=== PATIENT | female | born 1950 | race Caucasian/White ===

== ENCOUNTER 2018-04-18 20:33 | Emergency (ER) | payer OTHER ==
--- OUTSIDE RECORDS SUMMARY | 2018-04-18 20:34 | XMS REPORT | Clinical Summary ---
:1950 Author Organization [facility] Address [address] [place] [address] Care Team Providers Name Role Phone Jarrod Ortega MD Primary Care Provider Allergies Active Allergy Reactions Severity Noted Date Comments Codeine GI Intolerance 11/06/2016 Other Hives 03/27/2017 Metal Thiopental Sodium Anaphylaxis High 11/06/2016 Medications Medication Sig Dispensed Refills Start Date End Date Status amLODIPine (NORVASC) 2.5 Take 2.5 mg by 0 Active mg tablet mouth daily. LACTOBACILLUS RHAMNOSUS Take by mouth. 0 Active GG (CULTURELLE ORAL) rosuvastatin (CRESTOR) 5 Take 5 mg by 0 Active MG tablet mouth daily. L-LYSINE ORAL Take by mouth. 0 Active CALCIUM CARBONATE Take by mouth. 0 Active (CALCIUM 500 ORAL) cholecalciferol, vitamin Take 2,000 Units 0 Active D3, (VITAMIN D3) 2,000 by mouth daily. unit capsule capsule metFORMIN (GLUCOPHAGE) Take 500 mg by 0 Active 500 mg tablet mouth 2 (two) times a day with meals. FLUTICASONE PROPIONATE into each 0 Active (FLONASE NASL) nostril. esomeprazole (NexIUM) 20 Take 20 mg by 0 Active MG capsule mouth daily before breakfast. omega-3 acid ethyl Take 1 g by 0 Active esters (LOVAZA) 1 gram mouth 2 (two) capsule times a day. KRILL OIL ORAL Take by mouth. 0 Active Active Problems Problem Noted Date Trigger middle finger of left hand 11/06/2016 Trigger ring finger of left hand 11/06/2016 Tendinitis of finger 11/06/2016 Radial styloid tenosynovitis of left hand 11/06/2016 Bilateral carpal tunnel syndrome 11/06/2016 Social History Tobacco Use Types Packs/Day Years Used Date Never Smoker Smokeless Tobacco: Never Used Alcohol Use Drinks/Week oz/Week Comments Yes 1 Glasses of wine 0.6 Sex Assigned at Date Recorded Not on file Job Start Date Occupation Industry Not on file Not on file Not on file Travel History Travel Start Travel End No recent travel history available. Last Filed Vital Signs Not on file Plan of Treatment Health Maintenance Due Date Last Done Comments CERVICAL CANCER SCREENING 1973 BREAST CANCER SCREENING 2002 COLON CANCER SCREENING 2002 SHINGLES VACCINES (1 of 2) 2002 PNEUMOCOCCAL POLYSACCHARIDE VACCINE AGE 65 AND OVER 2017 PNEUMOCOCCAL-13 2017 INFLUENZA VACCINE 10/29/2017 Results Not on fileafter 04/17/2017 Insurance Payer Benefit Plan / Group Subscriber ID Type Phone Address [employer] A[employer] PPO OPEN CHOICE xxxxxxxxx PPO Advance Directives Patient has advance care planning documents on file. For more information, please contact:[place] [address]
[2018-04-18 22:04] LABS: Potassium 4.1 mmol/L (3.5-5.1)
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
[2018-04-18 23:01] LABS: Absolute Lymphocytes (CBC) 2.5 K/uL (0.7-4.9); Absolute Monocytes 0.6 K/uL (0.1-1.3); Absolute Neutrophil 4.7 K/uL (1.8-8.0); Basophils % 0.8 % (0-1.3); Eosinophils % 1.9 % (0-4.4); Hematocrit 41.7 % (36.0-45.0); Lymphocytes % 31.3 % (15.3-44.8); MPV 6.8 fL (7.6-11.3); Monocytes % 7.9 % (3.3-12.3); RBC Red Blood Cell Count 5.03 M/uL (3.86-4.86)
[2018-04-18 23:39] VITALS: TEMP 98.4
[2018-04-18 23:42] VITALS: BP 126/59; O2SAT 99
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
== END 2018-04-18 23:07 | disposition home or self-care (01) ==
LOC: ER 20:33
DX: M54.2 Cervicalgia (principal); K21.9 Gastro-esophageal reflux disease without esophagitis; I10 Essential (primary) hypertension; V43.52XA Car driver injured in collision with other type car in traffic accident, initial encounter; Y93.89 Activity, other specified; Y92.410 Unspecified street and highway as the place of occurrence of the external cause; Z88.6 Allergy status to analgesic agent
CPT/HCPCS: 36415; 70450; 71045; 72125; 80048; 85025